=== PATIENT | female | born 1985 ===

== ENCOUNTER 2023-01-08 17:11 | Emergency (ER) | payer OTHER ==
[2023-01-08] MEDS ORDERED: predniSONE 20 MG Tab PO ONE (17:44)
[2023-01-08] MEDS ORDERED: Take Home: predniSONE 20 MG, 4 Tab Pack PO ONE (18:03)
== END 2023-01-08 18:13 | disposition home or self-care (01) ==
LOC: LL.ED 17:11
DX: M25.511 Pain in right shoulder (principal); Z88.2 Allergy status to sulfonamides; Z88.8 Allergy status to other drugs, medicaments and biological substances
CPT/HCPCS: 99283; A9270-GY; J7512